=== PATIENT | male | born 1945 | race Caucasian/White ===

== ENCOUNTER 2019-08-27 10:06 | Outpatient (CLI) | payer OTHER ==
--- NOTE | 2019-08-27 11:19 | RAD ---
CHEST TWO VIEWS: HISTORY: Shortness of breath. COMPARISON: None. FINDINGS: There is a calcified granuloma in the right mid lung. There is another small nodule in the peripheral right lung, more inferiorly, which may not be calcifi ed, measuring in the 4 to 5 mm range. No infiltrate or effusion. Heart and mediastinum unremarkable. IMPRESSION: Evidence of a noncalcified granuloma in the right lower lung. A calcified granuloma in the right mid lung. Recommend short term followup with repeat exam in six months to confirm stability of the noncalcified nodule. CODE T POS: MARGOT
== END 2019-08-27 10:07 | disposition home or self-care (01) ==
LOC: MADRAD 10:06
PROVIDERS: ATTEND Orthopaedic Surgery
DX: R06.02 Shortness of breath (principal); J84.10 Pulmonary fibrosis, unspecified
CPT/HCPCS: 71046